=== PATIENT | male | born 1975 | race American Indian/Alaskan Native ===

== ENCOUNTER 2018-09-16 22:08 | Emergency (ER) | payer MEDICARE ==
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
[2018-09-16 23:12] LABS: Basophils # (Auto) 0.1 K/mm3 (0.0-0.1); Basophils % (Auto) 0.9 % (0.0-1.8); Eosinophils # (Auto) 0.1 K/mm3 (0.0-0.4); Eosinophils % (Auto) 1.4 % (0.0-4.3); Hematocrit 42.2 % (35.5-45.6); Hemoglobin 14.3 gm/dl (11.8-15.2); Lymphocytes # (Auto) 2.1 K/mm3 (1.2-5.4); Lymphocytes % (Auto) 32.8 % (13.4-35.0); Mean Corpuscular HGB Conc 34 % (32-34); Mean Corpuscular Volume 95 fl (84-94); Monocytes # (Auto) 0.6 K/mm3 (0.0-0.8); Monocytes % (Auto) 8.9 % (0.0-7.3); Platelet Count 150 K/mm3 (140-440); Red Blood Count 4.46 M/mm3 (3.65-5.03); Red Cell Distribution Width 14.4 % (13.2-15.2)
[2018-09-16 23:32] LABS: BUN/Creatinine Ratio 10; Blood Urea Nitrogen 10 mg/dL (9-20); Calcium 9.2 mg/dL (8.4-10.2); Hemolysis Index 17
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
[2018-09-17] MEDS ORDERED: ZOLOFT PO SCH (17:00)
[2018-09-17 17:07] VITALS: BP 113/65
[2018-09-17 17:51] LABS: Bilirubin,Urine NEG (Negative); Blood,Urine NEG (Negative); Color,Urine Yellow (Yellow); Mucus,Urine FEW /HPF; Protein,Urine <15 mg/dL mg/dL (Negative); Urobilinogen,Urine < 2.0 mg/dL (<2.0); WBC,Urine < 1.0 /HPF (0.0-6.0)
[2018-09-17 18:01] LABS: Amphetamine Screen,Urine PRESUMPTIVE NEGATIVE; Benzodiazepines Screen,Urine PRESUMPTIVE NEGATIVE; Cocaine Screen,Urine PRESUMPTIVE NEGATIVE; Methadone Screen,Urine PRESUMPTIVE NEGATIVE; Opiate Screen,Urine PRESUMPTIVE NEGATIVE
[2018-09-17 18:14] LABS: Cannabinoid Screen,Urine PRESUMPTIVE POSITIVE
[2018-09-18] MEDS ORDERED: ZOLOFT PO SCH (10:00)
[2018-09-18] MEDS ORDERED: ABILIFY PO SCH (10:00)
== END 2018-09-17 22:15 ==
LOC: ED 22:08
DX: F32.9 Major depressive disorder, single episode, unspecified (principal); R56.9 Unspecified convulsions; F17.200 Nicotine dependence, unspecified, uncomplicated; F12.10 Cannabis abuse, uncomplicated
CPT/HCPCS: 36415; 80048; 80164; 80307; 81001; 85025; 99285; G0480; 80320

== ENCOUNTER 2018-11-09 18:11 | Emergency (ER) | payer MEDICARE ==
[2018-11-09] MEDS ORDERED: ATIVAN IV ONE (18:35)
--- NOTE | 2018-11-09 18:44 | Emergency Department Report ---
HPI - General Chief Complaint: Psych Time Seen by Provider: 11/09/18 18:25 - HPI HPI: Room 10 The patient is a 43-year-old male presenting with chief complaint of seizure and suicidal ideation. The patient states he is staying in a assisted and got into an argument with a staff member. The patient states he then walked away began to feel lightheaded and had a generalized tonic-clonic seizure. The patient states she's been out of his Depakote for the past 2 weeks. The patient states for several weeks is also has suicidal ideation. Patient denies an active plan or attempts at harming himself. Location: [See above] Duration: [See above] Quality: [See above] Severity: [See above] Modifying factors: [see above] Context: [see above] Mode of transportation: [not driving] ED Past Medical Hx - Past Medical History Previous Medical History?: Yes Hx Seizures: Yes (TBI) Additional medical history: seizure - Surgical History Past Surgical History?: Yes Additional Surgical History: left femur, head injury, cranial repair, left ring finger fracture repair - Family History Family history: no significant - Social History Smoking Status: Current Every Day Smoker (1/3 pack per day) Substance Use Type: Marijuana - Medications Home Medications: Home Medications Medication Instructions Recorded Confirmed Last Taken Type ARIPiprazole [Abilify] 10 mg PO DAILY 09/17/18 09/17/[address] [DepaKOTE DR] 500 mg PO BID 09/17/18 09/17/18 Unknown History Sertraline [Zoloft] 50 mg PO QDAY 09/17/18 09/17/18 Unknown History ED Review of Systems ROS: Stated complaint: SEIZURE/SUICIDAL Other details as noted in HPI Constitutional: no symptoms reported Eyes: denies: eye pain ENT: denies: throat pain Respiratory: no symptoms reported Cardiovascular: denies: chest pain Endocrine: no symptoms reported Gastrointestinal: denies: abdominal pain Genitourinary: denies: dysuria Musculoskeletal: denies: back pain Skin: denies: lesions Neurological: denies: headache Physical Exam - Physical Exam Vital Signs: Vital Signs 11/09/18 11/09/18 18:15 18:25 Temperature 98.1 F Pulse Rate 109 H 97 H Respiratory 18 20 Rate Blood Pressure 120/85 Blood Pressure 132/84 [Left] O2 Sat by Pulse 97 96 Oximetry Physical Exam: GENERAL: The patient is well-developed well-nourished male lying on stretcher not appearing to be in acute distress. [] HEENT: Normocephalic. Atraumatic. Extraocular motions are intact. Patient has moist mucous membranes. NECK: Supple. Trachea midline CHEST/LUNGS: Clear to auscultation. There is no respiratory distress noted. HEART/CARDIOVASCULAR: Regular. There is no tachycardia. There is no gallop rub or murmur. ABDOMEN: Abdomen is soft, nontender. Patient has normal bowel sounds. There is no abdominal distention. SKIN: There is no rash. There is no edema. There is no diaphoresis. NEURO: The patient is awake, alert, and oriented. The patient is cooperative. The patient has normal speech MUSCULOSKELETAL: There is no evidence of acute injury. ED Course Vital Signs 11/09/18 11/09/18 18:15 18:25 Temperature 98.1 F Pulse Rate 109 H 97 H Respiratory 18 20 Rate Blood Pressure 120/85 Blood Pressure 132/84 [Left] O2 Sat by Pulse 97 96 Oximetry ED Medical Decision Making - Lab Data Result diagrams: 11/09/18 18:28 11/09/18 18:28 Laboratory Tests 11/09/18 11/09/18 11/09/18 18:28 18:28 18:28 WBC 7.5 RBC 4.93 Hgb 16.3 H Hct 46.4 H MCV 94 MCH 33 H MCHC 35 H RDW 14.8 Plt Count 208 Lymph % (Auto) 30.9 Lea % (Auto) 5.5 Eos % (Auto) 0.5 Baso % (Auto) 0.9 Lymph # 2.3 Lea # 0.4 Eos # 0.0 Baso # 0.1 Seg Neutrophils % 62.2 Seg Neutrophils # 4.7 Sodium 139 Potassium 4.4 Chloride 101.5 Carbon Dioxide 22 Anion Gap 20 BUN 18 Creatinine 1.0 Estimated GFR > 60 BUN/Creatinine Ratio 18 Glucose 149 H Calcium 9.8 Urine Color Urine Turbidity Urine pH Ur Specific [place] Urine Protein Urine Glucose (UA) Urine Ketones Urine Blood Urine Nitrite Urine Bilirubin Urine Urobilinogen Ur Leukocyte Esterase Urine WBC (Auto) Urine RBC (Auto) Urine Mucus Salicylates < 0.3 L Urine Opiates Screen Urine Methadone Screen Acetaminophen Ur Barbiturates Screen Valproic Acid < 2.8 L Ur Phencyclidine Scrn Ur Amphetamines Screen U Benzodiazepines Scrn Urine Cocaine Screen Plasma/Serum Alcohol 11/09/18 11/09/18 11/09/18 18:28 18:28 19:00 WBC RBC Hgb Hct MCV MCH MCHC RDW Plt Count Lymph % (Auto) Lea % (Auto) Eos % (Auto) Baso % (Auto) Lymph # Lea # Eos # Baso # Seg Neutrophils % Seg Neutrophils # Sodium Potassium Chloride Carbon Dioxide Anion Gap BUN Creatinine Estimated GFR BUN/Creatinine Ratio Glucose Calcium Urine Color Yellow Urine Turbidity Clear Urine pH 5.0 Ur Specific [place] 1.018 Urine Protein <15 mg/dl Urine Glucose (UA) Neg Urine Ketones Neg Urine Blood Sm Urine Nitrite Neg Urine Bilirubin Neg Urine Urobilinogen < 2.0 Ur Leukocyte Esterase Neg Urine WBC (Auto) 1.0 Urine RBC (Auto) 35.0 Urine Mucus Few Salicylates Urine Opiates Screen Urine Methadone Screen Acetaminophen < 5.0 L Ur Barbiturates Screen Valproic Acid Ur Phencyclidine Scrn Ur Amphetamines Screen U Benzodiazepines Scrn Urine Cocaine Screen Plasma/Serum Alcohol < 0.01 11/09/18 19:00 WBC RBC Hgb Hct MCV MCH MCHC RDW Plt Count Lymph % (Auto) Lea % (Auto) Eos % (Auto) Baso % (Auto) Lymph # Lea # Eos # Baso # Seg Neutrophils % Seg Neutrophils # Sodium Potassium Chloride Carbon Dioxide Anion Gap BUN Creatinine Estimated GFR BUN/Creatinine Ratio Glucose Calcium Urine Color Urine Turbidity Urine pH Ur Specific [place] Urine Protein Urine Glucose (UA) Urine Ketones Urine Blood Urine Nitrite Urine Bilirubin Urine Urobilinogen Ur Leukocyte Esterase Urine WBC (Auto) Urine RBC (Auto) Urine Mucus Salicylates Urine Opiates Screen Presumptive negative Urine Methadone Screen Presumptive negative Acetaminophen Ur Barbiturates Screen Presumptive negative Valproic Acid Ur Phencyclidine Scrn Presumptive negative Ur Amphetamines Screen Presumptive negative U Benzodiazepines Scrn Presumptive negative Urine Cocaine Screen Presumptive negative Plasma/Serum Alcohol - Differential Diagnosis suicidal ideation, epilepsy Critical care attestation.: If time is entered above; I have spent that time in minutes in the direct care of this critically ill patient, excluding procedure time. ED Disposition Clinical Impression: Suicidal ideation, Seizure, Seizure secondary to subtherapeutic anticonvulsant medication Disposition: DC/TX-65 PSY HOSP/PSY UNIT Is pt being admited?: No Does the pt Need Aspirin: No Condition: Serious Time of Disposition: 20:24 (awaiting acceptance)
[2018-11-09 18:46] LABS: Basophils # (Auto) 0.1 K/mm3 (0.0-0.1); Basophils % (Auto) 0.9 % (0.0-1.8); Eosinophils % (Auto) 0.5 % (0.0-4.3); Hematocrit 46.4 % (35.5-45.6); Hemoglobin 16.3 gm/dl (11.8-15.2); Lymphocytes # (Auto) 2.3 K/mm3 (1.2-5.4); Lymphocytes % (Auto) 30.9 % (13.4-35.0); Mean Corpuscular HGB Conc 35 % (32-34); Mean Corpuscular Volume 94 fl (84-94); Monocytes # (Auto) 0.4 K/mm3 (0.0-0.8); Monocytes % (Auto) 5.5 % (0.0-7.3); Platelet Count 208 K/mm3 (140-440); Red Blood Count 4.93 M/mm3 (3.65-5.03); Red Cell Distribution Width 14.8 % (13.2-15.2)
[2018-11-09 19:00] LABS: BUN/Creatinine Ratio 18; Blood Urea Nitrogen 18 mg/dL (9-20); Calcium 9.8 mg/dL (8.4-10.2); Hemolysis Index 16
[2018-11-09 20:00] LABS: Bilirubin,Urine NEG (Negative); Blood,Urine SM (Negative); Color,Urine Yellow (Yellow); Mucus,Urine FEW /HPF; Protein,Urine <15 mg/dL mg/dL (Negative); Urobilinogen,Urine < 2.0 mg/dL (<2.0)
[2018-11-09 20:12] LABS: Amphetamine Screen,Urine PRESUMPTIVE NEGATIVE; Benzodiazepines Screen,Urine PRESUMPTIVE NEGATIVE; Cocaine Screen,Urine PRESUMPTIVE NEGATIVE; Methadone Screen,Urine PRESUMPTIVE NEGATIVE; Opiate Screen,Urine PRESUMPTIVE NEGATIVE
[2018-11-09] MEDS ORDERED: DepaCON 500 MG in NACL 0.9% 100 ML IV ONE (20:23)
[2018-11-09 20:48] LABS: Cannabinoid Screen,Urine PRESUMPTIVE POSITIVE
[2018-11-09] MEDS: ABILIFY PO SCH (21:00)
[2018-11-10 08:02] VITALS: BP 112/77
[2018-11-10] MEDS: ABILIFY PO SCH (10:30)
== END 2018-11-10 12:36 ==
LOC: EEVIPCON 18:11 → ED 18:11
DX: R56.9 Unspecified convulsions (principal); R45.851 Suicidal ideations; F17.210 Nicotine dependence, cigarettes, uncomplicated; F12.90 Cannabis use, unspecified, uncomplicated; Z79.899 Other long term (current) drug therapy
CPT/HCPCS: 36415; 80048; 80164; 80307; 81001; 85025; 96365; 96366; 96375; 99285; G0480; J2060; 80320

== ENCOUNTER 2018-12-08 14:38 | Emergency (ER) | payer MEDICARE ==
[2018-12-08] MEDS ORDERED: MORPHINE IM ONE (14:57)
[2018-12-08 15:56] LABS: Bilirubin,Urine NEG (Negative); Blood,Urine LG (Negative); Color,Urine Amber (Yellow); Mucus,Urine 2+ /HPF; Urobilinogen,Urine < 2.0 mg/dL (<2.0)
[2018-12-08 15:56] LABS: Alanine Aminotransferase 21 units/L (7-56); Albumin 4.5 g/dL (3.9-5); BUN/Creatinine Ratio 17; Blood Urea Nitrogen 15 mg/dL (9-20); Calcium 9.9 mg/dL (8.4-10.2); Hemolysis Index 58
[2018-12-08 15:58] LABS: RBC,Urine > 182.0 /HPF (0.0-6.0)
[2018-12-08 16:02] LABS: Hematocrit 50.2 % (35.5-45.6); Mean Corpuscular HGB Conc 34 % (32-34); Mean Corpuscular Volume 95 fl (84-94); Red Blood Count 5.27 M/mm3 (3.65-5.03); Red Cell Distribution Width 14.9 % (13.2-15.2)
[2018-12-08] MEDS ORDERED: NACL 0.9% 1000 ML 1,000 ML IV ONE (16:02)
[2018-12-08] MEDS ORDERED: ZOFRAN IV ONE (16:24)
[2018-12-08] MEDS ORDERED: MORPHINE IV ONE (16:24)
[2018-12-08 16:46] LABS: Platelet Count 150 K/mm3 (140-440)
--- NOTE | 2018-12-08 17:12 | Ultrasound Report ---
Scrotal ultrasound INDICATION: Right lower quadrant pain FINDINGS: The right testis measures 4.7 x 2.9 x 2.2 cm. It shows homogeneous echogenicity without int ratesticular mass. There is good arterial flow to the right testis with no evidence of torsion. Right epididymis is normal. There is no significant right hydrocele. Left testis measures 4.4 x 3.1 x 2.5 cm and also shows homogeneous echogenicity without intra or extratesticular mass. There are small epi didymal head cysts which are not significant. No left-sided epididymitis or varicocele. No significan t abnormality. IMPRESSION: Negative scrotal ultrasound. Signer Name: Destin Maharaj MD Signed: 12/08/2018 5:08 PM Workstation Name: [id number]
--- NOTE | 2018-12-08 18:06 | Cat Scan Report ---
CT of the abdomen and pelvis with contrast INDICATION: Right lower quadrant pain today COMPARISON: None FINDINGS: Lung bases are clear. The liver, spleen, pancreas, adrenal glands and left kidney are kenyatta l. There is slight right hydronephrosis without perinephric edema. Obstruction is seen to be caused b y a 6 mm stone at the right UPJ. No definite gallbladder or biliary tree abnormality. No fluid or maycol nopathy in the upper abdomen. CT of the pelvis shows a normal distal right ureter. Compression hip screw is seen in the left hip. N o stone fragments seen in the bladder. Prostate is not enlarged. No pelvic or inguinal adenopathy. No diverticulosis or diverticulitis. Appendix is seen and is normal. IMPRESSION: 6 mm right UPJ stone with low to moderate grade obstruction. No appendicitis is seen. Automated exposure control was utilized to diminish radiation dose. Signer Name: Destin Maharaj MD Signed: 12/08/2018 6:01 PM Workstation Name: [email or web address]
--- NOTE | 2018-12-08 18:20 | Emergency Department Report ---
ED Abdominal Pain HPI - General Chief Complaint: Abdominal Pain Stated Complaint: ABD PAIN Time Seen by Provider: 12/08/18 14:55 Source: patient Mode of arrival: Ambulatory Limitations: No Limitations - History of Present Illness Initial Comments: This is a 43-year-old male nontoxic, well nourished in appearance, no acute signs of distress presents to the ED with c/o of right flank pain that started yesterday. Patient stated that today pain started to radiate to right lower abdominal and testicular area. Patient denies any nausea or vomiting. Patient describes abdominal pain as sharp and aching with level 3/10. Patient denies chest pain, short of breath, fever, chills, headache, stiff neck, numbness or tingling. Patient denies any diarrhea or constipation. Patient denies any recent travels. Patient denies any allergies. Patient also is requesting for refill of Depakote that he takes 500 mg twice daily for seizure. Patient stated that [place] and is looking for a primary care doctor. MD Complaint: abdominal pain, flank pain -: days(s) (1) Location: RLQ, R flank Radiation: RLQ Migration to: no migration Severity: mild Severity scale (0 -10): 8 Quality: cramping, aching, sharp Consistency: constant Improves With: nothing Worsens With: nothing Associated Symptoms: denies other symptoms. denies: nausea, vomiting, diarrhea, fever, chills, constipation, dysuria, hematemesis, hematochezia, melena, hematu jennifer, anorexia, syncope - Related Data Home Medications Medication Instructions Recorded Confirmed Last Taken ARIPiprazole [Abilify] 10 mg PO DAILY 09/17/18 11/10/18 Unknown Divalproex [Arabella CABAN] 500 mg PO BID 09/17/18 11/10/18 Unknown Sertraline [Zoloft] 50 mg PO QDAY 09/17/18 11/10/18 Unknown Previous Rx's Medication Instructions Recorded Last Taken Type Acetaminophen/Codeine [Tylenol 1 tab PO Q6H PRN #12 tab 12/08/18 Unknown Rx /Codeine # 3 tab] Divalproex [Arabella CABAN] 500 mg PO BID #60 tablet 12/08/18 Unknown Rx Ondansetron [Zofran Odt] 4 mg PO Q8HR PRN #20 tab.rapdis 12/08/18 Unknown Rx Allergies Allergy/AdvReac Type Severity Reaction Status Date / Time No Known Allergies Allergy Verified 11/09/18 18:28 ED Review of Systems ROS: Stated complaint: ABD PAIN Other details as noted in HPI Constitutional: denies: chills, fever Eyes: denies: eye pain, eye discharge, vision change ENT: denies: ear pain, throat pain Respiratory: denies: cough, shortness of breath, wheezing Cardiovascular: denies: chest pain, palpitations Endocrine: no symptoms reported Gastrointestinal: abdominal pain. denies: nausea, vomiting, diarrhea Genitourinary: testicular pain. denies: urgency, dysuria Musculoskeletal: denies: back pain, joint swelling, arthralgia Skin: denies: rash, lesions Neurological: denies: headache, weakness, paresthesias Psychiatric: denies: anxiety, depression Hematological/Lymphatic: denies: easy bleeding, easy bruising ED Past Medical Hx - Past Medical History Previous Medical History?: Yes Hx Seizures: Yes (TBI) Hx Psychiatric Treatment: Yes (Pt reports having been to inpatient psych before) Additional medical history: seizure - Surgical History Past Surgical History?: Yes Additional Surgical History: left femur, head injury, cranial repair, left ring finger fracture repair - Social History Smoking Status: Never Smoker Substance Use Type: None - Medications Home Medications: Home Medications Medication Instructions Recorded Confirmed Last Taken Type ARIPiprazole [Abilify] 10 mg PO DAILY 09/17/18 11/10/[address] [Arabella CABAN] 500 mg PO BID 09/17/18 11/10/18 Unknown History Sertraline [Zoloft] 50 mg PO QDAY 09/17/18 11/10/18 Unknown History Acetaminophen/Codeine [Tylenol 1 tab PO Q6H PRN #12 tab 12/08/18 Unknown Rx /Codeine # 3 tab] Divalproex [Arabella CABAN] 500 mg PO BID #60 tablet 12/08/18 Unknown Rx Ondansetron [Zofran Odt] 4 mg PO Q8HR PRN #20 tab.rapdis 12/08/18 Unknown Rx ED Physical Exam - General Limitations: No Limitations General appearance: alert, in no apparent distress - Head Head exam: Present: atraumatic, normocephalic - Eye Eye exam: Present: normal appearance - Neck Neck exam: Present: normal inspection, full ROM. Absent: tenderness, meningismus, lymphadenopathy - Respiratory Respiratory exam: Present: normal lung sounds bilaterally. Absent: respiratory distress, wheezes, rales, rhonchi, stridor, chest wall tenderness, accessory muscle use, decreased breath sounds, prolonged expiratory - Cardiovascular Cardiovascular Exam: Present: regular rate, normal rhythm, normal heart sounds. Absent: bradycardia, tachycardia, irregular rhythm, systolic murmur, diastolic murmur, rubs, gallop - GI/Abdominal GI/Abdominal exam: Present: soft, normal bowel sounds. Absent: distended, tenderness, guarding, rebound, rigid, diminished bowel sounds - Rectal Rectal exam: Present: deferred - Extremities Exam Extremities exam: Present: normal inspection, full ROM, normal capillary refill. Absent: tenderness - Back Exam Back exam: Present: normal inspection, full ROM. Absent: tenderness, CVA tenderness (R), CVA tenderness (L), muscle spasm, paraspinal tenderness, vertebral tenderness, rash noted - Neurological Exam Neurological exam: Present: alert, oriented X3, normal gait - Psychiatric Psychiatric exam: Present: normal affect, normal mood - Skin Skin exam: Present: warm, dry, intact, normal color. Absent: rash ED Course Vital Signs 12/08/18 12/08/18 12/08/18 14:53 16:32 17:02 Temperature 97.9 F Pulse Rate 69 Respiratory 16 18 18 Rate Blood Pressure 132/75 O2 Sat by Pulse 98 Oximetry - Reevaluation(s) Reevaluation #1: 12/08/18 18:19 Patient is speaking in full sentences with no signs of distress noted. - Consultations Consultation #1: 12/08/18 18:20 Patient has been consulted with Santi Jacobson about patient history, physical exam, and labs/CT results and examined and screened patient and agrees to ED plan of care and discharge plan of care. ED Medical Decision Making - Lab Data Result diagrams: 12/08/18 15:11 12/08/18 15:11 - Medical Decision Making This is a 43-year-old male that presents with right kidney stone. Patient is stable and was examined by me. There is no abdominal tenderness. Negative signs of symptoms of appendicitis. Labs obtained. UA obtained. CT of abdomen obtained and dictated by the radiologist. Doppler ultrasound of testicular area has been obtained and dictated by radiologist and dictated by radiologist unremarkable. Patient is notified of the report with no questions noted by the patient. Vital signs are stable prior to discharge. Patient was discussed with Dr. Salinas. Patient received medical treatment in the ED which patient stated symptoms has resovled and subsided. Was instructed note to operate any machinery due to possible drowsiness and stated someone will drive the patient home. A by mouth challenge has been obtained and patient tolerated well with no nausea vomiting. Patient was also instructed to Follow-up with a primary care doctor in 3-5 days or if symptoms worsen and continue return to emergency room as soon as possible. At time of discharge, the patient does not seem toxic or ill in appearance. No acute signs of distress noted. Patient agrees to discharge treatment plan of care. No further questions noted by the patient. Critical care attestation.: If time is entered above; I have spent that time in minutes in the direct care of this critically ill patient, excluding procedure time. ED Disposition Clinical Impression: Right kidney stone Disposition: DC-01 TO HOME OR SELFCARE Is pt being admited?: No Does the pt Need Aspirin: No Condition: Stable Instructions: Acetaminophen/Codeine (By mouth), Kidney Stones (ED) Additional Instructions: Follow-up with a primary care and urologist doctor in 3-5 days or if symptoms worsen and continue return to emergency room as soon as possible. Prescriptions: Divalproex Dr [DepaKOTE DR] 500 mg PO BID #60 tablet Acetaminophen/Codeine [Tylenol /Codeine # 3 tab] 1 tab PO Q6H PRN #12 tab PRN Reason: Pain , Severe (7-10) Ondansetron [Zofran Odt] 4 mg PO Q8HR PRN #20 tab.rapdis PRN Reason: Nausea Referrals: PRIMARY CARE, [Referring] - 3-5 Days SANTI BAIRES MD [Staff Physician] - 3-5 Days GERALDO BASS MD [Staff Physician] - 3-5 Days [facility] [Outside] - 3-5 Days [facility] [Outside] - 3-5 Days Forms: Work/School Release Form(ED)
[2018-12-08 19:23] VITALS: BP 120/73
== END 2018-12-08 19:01 | disposition home or self-care (01) ==
LOC: ED 14:38
DX: N20.0 Calculus of kidney (principal); Z79.899 Other long term (current) drug therapy
CPT/HCPCS: 36415; 74177; 80053; 81001; 83690; 85025; 87086; 93975; 96374; 96375; 99284; J2270; J2405; J7030; Q9967; 96361

== ENCOUNTER 2018-12-11 16:59 | Emergency (ER) | payer MEDICARE ==
[2018-12-11] MEDS ORDERED: SUBLIMAZE IM ONE (17:40)
[2018-12-11] MEDS ORDERED: NORCO 5/325 PO ONE (17:40)
[2018-12-11] MEDS ORDERED: ZOFRAN IM ONE (17:40)
--- NOTE | 2018-12-11 17:41 | Emergency Department Report ---
HPI - General Chief Complaint: Abdominal Pain Time Seen by Provider: 12/11/18 17:26 - HPI HPI: Room 18 The patient is a 43-year-old male presenting with chief complaint of kidney stone pain. The patient was seen here 12/08/2018 for right flank pain and was diagnosed 6 mm stone at the [facility]. The patient was treated with pain medication and discharged states his pain is left. The patient took his prescription pain medication the pharmacy but states he does not have the $15 needed to pay for it. This prompted the patient come back to the emergency department. Patient states there have been no new symptoms. Patient denies fever at home. Patient currently is his pain a score of 9/10 Location: [See above] Duration: [See above] Quality: [See above] Severity: [See above] Modifying factors: [see above] Context: [see above] Mode of transportation: [not driving] ED Past Medical Hx - Past Medical History Previous Medical History?: Yes Hx Seizures: Yes (TBI) Hx Psychiatric Treatment: Yes (Pt reports having been to inpatient psych before) Additional medical history: seizure - Surgical History Past Surgical History?: Yes Additional Surgical History: left femur, head injury, cranial repair, left ring finger fracture repair - Family History Family history: no significant - Social History Smoking Status: Current Every Day Smoker (1/2 pack per day) Substance Use Type: None (denies illicit drug use) - Medications Home Medications: Home Medications Medication Instructions Recorded Confirmed Last Taken Type ARIPiprazole [Abilify] 10 mg PO DAILY 09/17/18 11/10/[address] Latia CABAN] 500 mg PO BID 09/17/18 11/10/18 Unknown History Sertraline [Zoloft] 50 mg PO QDAY 09/17/18 11/10/18 Unknown History Acetaminophen/Codeine [Tylenol 1 tab PO Q6H PRN #12 tab 12/08/18 Unknown Rx /Codeine # 3 tab] Divalproex Dr Latia CABAN] 500 mg PO BID #60 tablet 12/08/18 Unknown Rx Ondansetron [Zofran Odt] 4 mg PO Q8HR PRN #20 tab.rapdis 12/08/18 Unknown Rx ED Review of Systems ROS: Stated complaint: KIDNEY PAIN Other details as noted in HPI Constitutional: denies: fever Eyes: denies: eye pain ENT: denies: throat pain Respiratory: no symptoms reported Cardiovascular: denies: chest pain Endocrine: no symptoms reported Gastrointestinal: abdominal pain Genitourinary: denies: dysuria, hematuria Musculoskeletal: back pain Neurological: denies: headache Physical Exam - Physical Exam Vital Signs: Vital Signs 12/11/18 17:13 Temperature 98.7 F Pulse Rate 87 Respiratory 16 Rate Blood Pressure 135/81 O2 Sat by Pulse 98 Oximetry Physical Exam: GENERAL: The patient is well-developed well-nourished male lying on stretcher not appearing to be in acute distress. [] HEENT: Normocephalic. Atraumatic. Extraocular motions are intact. Patient has moist mucous membranes. NECK: Supple. Trachea midline CHEST/LUNGS: Clear to auscultation. There is no respiratory distress noted. HEART/CARDIOVASCULAR: Regular. There is no tachycardia. There is no gallop rub or murmur. ABDOMEN: Abdomen is soft, nontender. Patient has normal bowel sounds. There is no abdominal distention. SKIN: There is no rash. There is no edema. There is no diaphoresis. NEURO: The patient is awake, alert, and oriented. The patient is cooperative. The patient has normal speech MUSCULOSKELETAL: There is right CVA tenderness. There is no evidence of acute injury. ED Course Vital Signs 12/11/18 17:13 Temperature 98.7 F Pulse Rate 87 Respiratory 16 Rate Blood Pressure 135/81 O2 Sat by Pulse 98 Oximetry ED Medical Decision Making - Differential Diagnosis renal colic Critical care attestation.: If time is entered above; I have spent that time in minutes in the direct care of this critically ill patient, excluding procedure time. ED Disposition Clinical Impression: Renal colic on right side Disposition: DC-01 TO HOME OR SELFCARE Is pt being admited?: No Does the pt Need Aspirin: No Condition: Stable Instructions: Renal Colic (ED) Additional Instructions: Return to the emergency department immediately should you develop worsening symptoms, fever, inability to tolerate food or liquid or any other concerns. Referrals: PRIMARY CARE, [Primary Care Provider] - 3-5 Days GERALDO SALINAS MD [Staff Physician] - 3-5 Days (Dr. Salinas is a urologist. Ebony yu follow up with him for further evaluation) Time of Disposition: 17:45
[2018-12-11 18:28] VITALS: BP 130/73
== END 2018-12-11 18:10 | disposition home or self-care (01) ==
LOC: ED 16:59
DX: N23 Unspecified renal colic (principal); F17.200 Nicotine dependence, unspecified, uncomplicated
CPT/HCPCS: 96372; 99283; J2405; J3010

== ENCOUNTER 2018-12-13 05:20 | Emergency (ER) | payer MEDICARE ==
[2018-12-13 05:39] VITALS: BP 128/86
[2018-12-13 06:12] LABS: Bilirubin,Urine NEG (Negative); Blood,Urine SM (Negative); Color,Urine Yellow (Yellow); Mucus,Urine FEW /HPF; Protein,Urine <15 mg/dL mg/dL (Negative); Urobilinogen,Urine < 2.0 mg/dL (<2.0)
--- NOTE | 2018-12-13 06:12 | Emergency Department Report ---
ED General Adult HPI - General Chief complaint: Abdominal Pain Stated complaint: ABDOMINAL PAIN Time Seen by Provider: 12/13/18 06:03 Source: patient, EMS Mode of arrival: Stretcher Limitations: No Limitations - History of Present Illness Initial comments: 43-year-old -[place] male presents emergency department complaining of continued kidney stone pain. He was initially seen 12/08/2018 at 6 mm stone to the right UVP J and was advised to follow up with urology as he is not yet able to do so. He was provided with pain medication prescription. Apparently cost $15 according to the previous physician's note. He is still not been able to acquire that prescription due to his monetary restraints, which is his reason for return to the emergency department. He reports no worsening symptoms, but did have a sharp pain to the right suprapubic region. There is sharp to 4 is still present at this point medication. He denies fever, chills, sweats, diarrhea. - Related Data Home Medications Medication Instructions Recorded Confirmed Last Taken ARIPiprazole [Abilify] 10 mg PO DAILY 09/17/18 11/10/18 Unknown Divalproex [Arabella CABAN] 500 mg PO BID 09/17/18 11/10/18 Unknown Sertraline [Zoloft] 50 mg PO QDAY 09/17/18 11/10/18 Unknown Previous Rx's Medication Instructions Recorded Last Taken Type Acetaminophen/Codeine [Tylenol 1 tab PO Q6H PRN #12 tab 12/08/18 Unknown Rx /Codeine # 3 tab] Divalproex [Arabella CABAN] 500 mg PO BID #60 tablet 12/08/18 Unknown Rx Ondansetron [Zofran Odt] 4 mg PO Q8HR PRN #20 tab.rapdis 12/08/18 Unknown Rx Allergies Allergy/AdvReac Type Severity Reaction Status Date / Time No Known Allergies Allergy Verified 11/09/18 18:28 ED Review of Systems ROS: Stated complaint: ABDOMINAL PAIN Other details as noted in HPI Comment: All other systems reviewed and negative ED Past Medical Hx - Past Medical History Hx Seizures: Yes (TBI) Hx Kidney Stones: Yes Hx Psychiatric Treatment: Yes (Pt reports having been to inpatient psych before) Additional medical history: seizure - Surgical History Past Surgical History?: Yes Additional Surgical History: left femur, head injury, cranial repair, left ring finger fracture repair - Social History Smoking Status: Current Every Day Smoker Substance Use Type: None - Medications Home Medications: Home Medications Medication Instructions Recorded Confirmed Last Taken Type ARIPiprazole [Abilify] 10 mg PO DAILY 09/17/18 11/10/[address] [DepaKOTE DR] 500 mg PO BID 09/17/18 11/10/18 Unknown History Sertraline [Zoloft] 50 mg PO QDAY 09/17/18 11/10/18 Unknown History Acetaminophen/Codeine [Tylenol 1 tab PO Q6H PRN #12 tab 12/08/18 Unknown Rx /Codeine # 3 tab] Divalproex Dr [DepaKOTE DR] 500 mg PO BID #60 tablet 12/08/18 Unknown Rx Ondansetron [Zofran Odt] 4 mg PO Q8HR PRN #20 tab.rapdis 12/08/18 Unknown Rx ED Physical Exam - General Limitations: No Limitations General appearance: alert, in no apparent distress - Head Head exam: Present: atraumatic, normocephalic - Eye Eye exam: Present: normal appearance - ENT ENT exam: Present: mucous membranes moist - Neck Neck exam: Present: normal inspection - Respiratory Respiratory exam: Present: normal lung sounds bilaterally. Absent: respiratory distress - Cardiovascular Cardiovascular Exam: Present: regular rate, normal rhythm. Absent: systolic murmur, diastolic murmur, rubs, gallop - GI/Abdominal GI/Abdominal exam: Present: soft, normal bowel sounds - Rectal Rectal exam: Present: deferred - Extremities Exam Extremities exam: Present: normal inspection - Back Exam Back exam: Present: normal inspection, CVA tenderness (R) - Neurological Exam Neurological exam: Present: alert, oriented X3, CN II-XII intact - Psychiatric Psychiatric exam: Present: normal affect, normal mood - Skin Skin exam: Present: warm, dry, intact, normal color. Absent: rash ED Course Vital Signs 12/13/18 05:22 Temperature 98.6 F Pulse Rate 72 Respiratory 18 Rate Blood Pressure 128/86 O2 Sat by Pulse 96 Oximetry ED Medical Decision Making - Medical Decision Making 43-year-old [place] male with a known kidney stone. No change in character, alert and oriented 3. Vital signs stable, afebrile return to the emergency department for analgesia control of discussed with him and nausea. The need to follow-up with urology. He was advised to follow with Dr. Salinas previous visit, but again has not done so. Critical care attestation.: If time is entered above; I have spent that time in minutes in the direct care of this critically ill patient, excluding procedure time. ED Disposition Clinical Impression: Right kidney stone, Renal colic on right side Disposition: DC- TO HOME OR SELFCARE Is pt being admited?: No Does the pt Need Aspirin: No Condition: Stable Instructions: Kidney Stones (ED), Flank Pain (ED), How to Strain Your Urine (ED) Referrals: RHETT KELLEY MD [Primary Care Provider] - 3-5 Days [facility] SPARROW [Provider Group] - 2-3 Days
[2018-12-13] MEDS ORDERED: PERCOCET 5/325 PO STA (06:16)
[2018-12-13] MEDS ORDERED: FLOMAX PO ONE (06:36)
== END 2018-12-13 06:40 | disposition home or self-care (01) ==
LOC: ED 05:20
DX: N20.0 Calculus of kidney (principal); F17.200 Nicotine dependence, unspecified, uncomplicated; Z79.899 Other long term (current) drug therapy
CPT/HCPCS: 81001; 99284

== ENCOUNTER 2019-01-08 17:52 | Emergency (ER) | payer MEDICARE, OTHER ==
--- NOTE | 2019-01-08 18:06 | Emergency Department Report ---
ED Seizure HPI - General Chief Complaint: Seizure Stated Complaint: SEIZURE Time Seen by Provider: 01/08/19 18:03 Source: patient, EMS Mode of arrival: Ambulatory Limitations: No Limitations - History of Present Illness Initial Comments: Patient is a 43-year-old male that is emergency room with complaints of a seizure. Patient states he is drinking today. Patient states sometimes when he drinks he has a seizure. Patient states she stepped in Depakote 500 mg twice a day but he missed the last few doses. Patient states the seizure was unwitnessed. Patient states he called EMS after the seizure. Patient states he is having head pain and neck pain. Patient is not sure if he has any trauma. Patient states his headache and neck pain are a 6 out of 10. Patient states they're worse with movement and better with rest. MD Complaint: seizure -: Sudden - Related Data Home Medications Medication Instructions Recorded Confirmed Last Taken ARIPiprazole [Abilify] 10 mg PO DAILY 09/17/18 11/10/[address] [Arabella CABAN] 500 mg PO BID 09/17/18 11/10/18 Unknown Sertraline [Zoloft] 50 mg PO QDAY 09/17/18 11/10/18 Unknown Previous Rx's Medication Instructions Recorded Last Taken Type Acetaminophen/Codeine [Tylenol 1 tab PO Q6H PRN #12 tab 12/08/18 Unknown Rx /Codeine # 3 tab] Divalproex Dr [Arabella CABAN] 500 mg PO BID #60 tablet 12/08/18 Unknown Rx Ondansetron [Zofran Odt] 4 mg PO Q8HR PRN #20 tab.rapdis 12/08/18 Unknown Rx Allergies Allergy/AdvReac Type Severity Reaction Status Date / Time No Known Allergies Allergy Verified 01/08/19 17:59 ED Review of Systems ROS: Stated complaint: SEIZURE Other details as noted in HPI Constitutional: denies: chills, fever Eyes: denies: eye pain, eye discharge, vision change ENT: denies: ear pain, throat pain Respiratory: denies: cough, shortness of breath, wheezing Cardiovascular: denies: chest pain, palpitations Endocrine: no symptoms reported Gastrointestinal: denies: abdominal pain, nausea, diarrhea Genitourinary: denies: urgency, dysuria Musculoskeletal: denies: back pain, joint swelling, arthralgia Skin: denies: rash, lesions Neurological: headache. denies: weakness, paresthesias Psychiatric: denies: anxiety, depression Hematological/Lymphatic: denies: easy bleeding, easy bruising ED Past Medical Hx - Past Medical History Previous Medical History?: Yes Hx Seizures: Yes (TBI) Hx Kidney Stones: Yes Hx Psychiatric Treatment: Yes (Pt reports having been to inpatient psych before) Additional medical history: TBI 2013 - Surgical History Past Surgical History?: Yes Additional Surgical History: left femur, head injury, cranial repair, left ring finger fracture repair - Family History Family history: no significant - Social History Smoking Status: Current Every Day Smoker Substance Use Type: Alcohol - Medications Home Medications: Home Medications Medication Instructions Recorded Confirmed Last Taken Type ARIPiprazole [Abilify] 10 mg PO DAILY 09/17/18 11/10/[address] [Arabella CABAN] 500 mg PO BID 09/17/18 11/10/18 Unknown History Sertraline [Zoloft] 50 mg PO QDAY 09/17/18 11/10/18 Unknown History Acetaminophen/Codeine [Tylenol 1 tab PO Q6H PRN #12 tab 12/08/18 Unknown Rx /Codeine # 3 tab] Divalproex Dr [Arabella DR] 500 mg PO BID #60 tablet 12/08/18 Unknown Rx Ondansetron [Zofran Odt] 4 mg PO Q8HR PRN #20 tab.rapdis 12/08/18 Unknown Rx ED Physical Exam - General Limitations: No Limitations General appearance: alert, in no apparent distress - Head Head exam: Present: atraumatic, normocephalic - Eye Eye exam: Present: normal appearance, PERRL Pupils: Present: normal accommodation - ENT ENT exam: Present: mucous membranes moist - Neck Neck exam: Present: normal inspection, tenderness - Respiratory Respiratory exam: Present: normal lung sounds bilaterally. Absent: respiratory distress, wheezes, rales - Cardiovascular Cardiovascular Exam: Present: regular rate, normal rhythm. Absent: systolic murmur, diastolic murmur, rubs, gallop - GI/Abdominal GI/Abdominal exam: Present: soft, normal bowel sounds - Rectal Rectal exam: Present: deferred - Extremities Exam Extremities exam: Present: normal inspection - Back Exam Back exam: Present: normal inspection - Neurological Exam Neurological exam: Present: alert, oriented X3 - Psychiatric Psychiatric exam: Present: normal affect, normal mood - Skin Skin exam: Present: warm, dry, intact, normal color. Absent: rash ED Course Vital Signs 01/08/19 01/08/19 01/08/19 17:54 17:59 22:28 Temperature 97.6 F Pulse Rate 94 H 68 Respiratory 16 16 15 Rate Blood Pressure 120/78 Blood Pressure 133/86 [Left] O2 Sat by Pulse 99 99 99 Oximetry - Reevaluation(s) Reevaluation #1: Initial evaluation done. Patient will be placed in a c-collar. Patient wanted a CT of the head and neck due to his complaints and the fact he has been drinking. 01/08/19 18:10 Reevaluation #2: I discussed all results with patient. Patient c-collar removed. 01/08/19 21:50 Reevaluation #3: I discussed all results with patient. Discussed plan of care with patient. Patient agrees to plan of care. Patient will be discharged home. Patient is stable for discharge. Patient given discharge instructions. Patient voiced understanding of discharge instructions 01/08/19 22:13 ED Medical Decision Making - Lab Data Result diagrams: 01/08/19 18:07 01/08/19 18:07 - Radiology Data Radiology results: report reviewed CT cervical spine without contrast INDICATION: sz. solis. neck pain. TECHNIQUE: Axial imaging performed through the cervical spine without the use of contrast. Sagittal and coronal reconstructed images were also reviewed. All CT scans at t his location are performed using CT dose reduction for ALARA by means of automated exposure control. COMPARISON: None FINDINGS: Alignment: Spinal alignment is normal. Bones: There is no acute osseous abnormality. Mild multilevel discogenic DJD is present. Soft tissues: No acute or significant incidental soft tissue abnormality. IMPRESSION: No acute abnormality. CT head without contrast INDICATION : sz. solis. neck pain. TECHNIQUE: Axial imaging performed from the skull apex through the skull base without the use of contrast. All CT scans at this location are performed using CT dose reduction for ALARA by means of automated exposure control. COMPARISON: None FINDINGS: Parenchyma: No acute intracranial hemorrhage or parenchymal abnormality. Old right frontal infarct. Ventricles: Ventricles are normal in size and appear symmetric. Soft tissues: Soft tissues including the orbits appear normal. Bones: No acute osseous abnormality. Sinuses: Sinuses and mastoid air cells are clear. IMPRESSION: No acute abnormality. - Medical Decision Making is a 43-year-old male up since emergency room with complaints of seizure. Patient also complained of headache and neck pain after a possible fall. Patient is currently intoxicated. Patient had a CT scan of the head and neck due to the patient had seizure and an acute intoxication. Patient had a CT of head and neck and were negative. Patient's labs unremarkable. Patient's s eizure most likely secondary to alcohol use and missed seizure medications. Patient advised to not miss his medications. Patient discharged home. Patient stable discharge. Patient given discharge instructions. Patient also advised not to drive or any strenuous activity. - Differential Diagnosis sz. Withdrawal seizure. Noncompliance. Acute intoxication Critical care attestation.: If time is entered above; I have spent that time in minutes in the direct care of this critically ill patient, excluding procedure time. ED Disposition Clinical Impression: Seizure, Noncompliance, Neck pain Acute alcohol intoxication Qualifiers: Complication of substance-induced condition: uncomplicated Qualified Code(s): F10.920 - Alcohol use, unspecified with intoxication, uncomplicated Head injury Qualifiers: Encounter type: initial encounter Qualified Code(s): S09.90XA - Unspecified injury of head, initial encounter Headache Qualifiers: Headache type: post-traumatic Headache chronicity pattern: acute headache Intractability: not intractable Qualified Code(s): G44.319 - Acute post- traumatic headache, not intractable Cervical sprain Qualifiers: Encounter type: initial encounter Qualified Code(s): S13.9XXA - Sprain of joints and ligaments of unspecified parts of neck, initial encounter Disposition: - TO HOME OR SELFCARE Is pt being admited?: No Does the pt Need Aspirin: No Condition: Stable Instructions: Epilepsy (ED), Recurrent Seizures in Children (ED) Additional Instructions: Patient to follow-up with Primary care 2-3 days. Patient to follow up with neurologist in 2-3 days. Patient to return to ER if condition worsens. Patient to take all meds as directed. Patient to not miss any of his seizure medications. Patient to decrease his alcohol intake. Patient to rest. Patient to avoid strenuous activities. Patient to not drive. Referrals: NAUN QUINONEZ MD [Primary Care Provider] - 2-3 Days Time of Disposition: 22:17
[2019-01-08 18:31] LABS: Hematocrit 41.8 % (35.5-45.6); Hemoglobin 14.6 gm/dl (11.8-15.2); Mean Corpuscular HGB Conc 35 % (32-34); Mean Corpuscular Volume 94 fl (84-94); Platelet Count 149 K/mm3 (140-440); Red Blood Count 4.45 M/mm3 (3.65-5.03); Red Cell Distribution Width 13.3 % (13.2-15.2)
[2019-01-08 18:56] LABS: Alanine Aminotransferase 15 units/L (7-56); Albumin 4.2 g/dL (3.9-5); BUN/Creatinine Ratio 17; Blood Urea Nitrogen 17 mg/dL (9-20); Calcium 9.4 mg/dL (8.4-10.2); Hemolysis Index 8
--- NOTE | 2019-01-08 21:21 | Cat Scan Report ---
CT head without contrast INDICATION : sz. solis. neck pain. TECHNIQUE: Axial imaging performed from the skull apex through the skull base without the use of con trast. All CT scans at this location are performed using CT dose reduction for ALARA by means of aut omated exposure control. COMPARISON: None FINDINGS: Parenchyma: No acute intracranial hemorrhage or parenchymal abnormality. Old right frontal infarct. Ventricles: Ventricles are normal in size and appear symmetric. Soft tissues: Soft tissues including the orbits appear normal. Bones: No acute osseous abnormality. Sinuses: Sinuses and mastoid air cells are clear. IMPRESSION: No acute abnormality. Signer Name: Ramon Salgado MD Signed: 01/08/2019 9:16 PM Workstation Name: [id number]
--- NOTE | 2019-01-08 21:29 | Cat Scan Report ---
CT cervical spine without contrast INDICATION: sz. solis. neck pain. TECHNIQUE: Axial imaging performed through the cervical spine without the use of contrast. Sagittal and coronal reconstructed images were also reviewed. All CT scans at this location are performed us ing CT dose reduction for ALARA by means of automated exposure control. COMPARISON: None FINDINGS: Alignment: Spinal alignment is normal. Bones: There is no acute osseous abnormality. Mild multilevel discogenic DJD is present. Soft tissues: No acute or significant incidental soft tissue abnormality. IMPRESSION: No acute abnormality. Signer Name: Ramon Salgado MD Signed: 01/08/2019 9:24 PM Workstation Name: [id number]
[2019-01-08 22:28] VITALS: BP 133/86
== END 2019-01-08 22:29 | disposition home or self-care (01) ==
LOC: ED 17:52
DX: S13.9XXA Sprain of joints and ligaments of unspecified parts of neck, initial encounter (principal); S09.90XA Unspecified injury of head, initial encounter; R56.9 Unspecified convulsions; M54.2 Cervicalgia; F10.129 Alcohol abuse with intoxication, unspecified; F17.200 Nicotine dependence, unspecified, uncomplicated; Z91.14 Patient's other noncompliance with medication regimen; Z87.442 Personal history of urinary calculi; Z79.899 Other long term (current) drug therapy; Z59.0 Homelessness; X58.XXXA Exposure to other specified factors, initial encounter; Y93.89 Activity, other specified; Y92.89 Other specified places as the place of occurrence of the external cause; Y99.8 Other external cause status
CPT/HCPCS: 36415; 70450; 72125; 80053; 80320; 85027; G0480